=== PATIENT | male | born 1985 | race African-American/Black ===

== ENCOUNTER → 2019-12-12 | Outpatient (CLI) | payer OTHER ==
[2019-12-12 09:13] LABS: PV SEMEN COLOR STRAW; PV VOLUME 2.6 mL (>1.4)
[2019-12-12 09:14] LABS: PV NONMOTILE CONCENTRATION 0.5 X10^6/mL; PV NONMOTILE COUNT1 6; PV NONMOTILE COUNT2 4; PV ROUND CELL CONCENTRATION 0.7 X10^6/mL (<5.1); PV ROUND CELL COUNT1 5; PV ROUND CELL COUNT2 8; PV SEMEN LIQUEFACTION 20 MINUTES (<61); PV SEMEN PH 8.2 (>7.1); PV SEMEN VISCOSITY NORMAL (NORMAL); PV SPERM CONCENTRATION 0.5 X10^6/mL (0.0); PV SPERM MOTILITY 0 % (0); PV STRAIGHT MOTILITY CNT 1 0; PV STRAIGHT MOTILITY CNT 2 0
== END ==
LOC: OD 08:11
PROVIDERS: ATTEND Urology
DX: Z30.2 Encounter for sterilization (principal)
CPT/HCPCS: 89321